=== PATIENT | male | born 1975 | race Caucasian/White ===

== ENCOUNTER 2025-02-10 11:32 | Emergency (ER) | payer SELFPAY ==
--- NOTE | ~2025-02-10 | XR_ITS ---
XR shoulder RT min 2V Ordering provider: Luis Armando Norris APRN History: . fall on monday, Rt shouldler pain, LROM . Comparison: None. FINDINGS: BONES: No acute fracture or dislocation. Degenerative changes in the area of the greater tuberosity w hich may indicate tendinosis of the supraspinatous. Clinical correlation and follow-up advised. JOINT SPACES: The acromioclavicular joint is normal. The glenohumeral joint is normal. SOFT TISSUES: Normal. IMPRESSION: No acute osseous abnormality right shoulder. Reviewed, dictated and finalized at location A.
[2025-02-10 11:46] VITALS: BP 153/96; PULSE 94; RESP 20; TEMP 36.8; O2SAT 98
--- NOTE | 2025-02-10 15:47 | ED_ITS ---
HPI - Extremity Injury (Upper) General Chief Complaint: Extremity Injury, Upper Stated Complaint: Injured Right Shoulder Time Seen by Provider: 02/10/25 12:30 Source: patient and RN notes reviewed Mode of arrival: ambulatory Limitations: no limitations History of Present Illness HPI narrative: 49-year-old male presents [facility] complaining of right shoulder injury. Patient was closing his cellar 3 days ago in the rain when he tripped and fell on his right side. Denies hitting his head, any loss of consciousness or any neck or back pain. Patient reports having pain in his right shoulder and that is worse with movement. Patient denies any numbness or tingling. Patient says he can only move his shoulder a little bit due to the pain. He denies any significant past medical history. Patient is also reporting left ear pain has been going on for over a month. His reports having chronic tinnitus in his ears. Patient denies any other upper respiratory symptoms. Related Data Home Medications ?Medication ?Instructions ?Recorded ?Confirmed ?Last Taken ?Type No Home Medications 02/10/25 02/10/25 Unknown History Allergies Allergy/AdvReac Type Severity Reaction Status Date / Time No Known Allergies Allergy Verified 02/10/25 11:55 Review of Systems Review of Systems: CONSTITUTIONAL: Denies fever, chills, or sweats. EYES: Denies visual changes, redness, or discharge. ENT: Denies rhinorrhea, congestion, sore throat. Positive for otalgia CARDIOVASCULAR: Denies chest pain, palpitations, or edema. RESPIRATORY: Denies cough or dyspnea. GASTROINTESTINAL: Denies abdominal pain, nausea, vomiting, or diarrhea. GENITOURINARY: Denies dysuria or hematuria. SKIN: Denies rash or itching. MUSCULOSKELETAL: Denies back pain, neck pain, joint pain, or myalgia. Positive right shoulder injury. NEUROLOGIC: Denies headache, numbness, or weakness. PSYCHIATRIC: Denies anxiety or depression. All other systems reviewed are negative, except as documented in HPI. PMFSH Comments At the time of my signature, I reviewed and agree with the nursing past medical, surgical, social, and family history. There is no relevant family history pertinent to the patient complaint. Exam Narrative: GENERAL: This is a well-nourished, well-developed adult, in no apparent distress. They are non ill-appearing, nontoxic appearing. HEAD: normocephalic, atraumatic. EYES: Sclera clear/white. Conjunctiva normal. Vision is grossly intact. Extraocular movements intact. Pupils PERRLA. No raccoon eyes. EARS: External ears normal, auditory canals clear and without drainage, TMs normal without perforation. Hearing grossly intact. No hemotympanum. NOSE: External nose normal with no obvious nasal discharge, nasal turbinates without redness, no rhinorrhea. THROAT: Mucous membranes moist, posterior pharynx clear, without erythema or swelling. Uvula midline. NECK: Neck supple, non-tender without lymphadenopathy, masses or thyromegaly. Normal range of motion without pain. No cervical point tenderness, crepitus, or step-offs. CARDIOVASCULAR: Regular rate and rhythm without murmurs, gallops, or rubs. RESPIRATORY: Clear to auscultation. Breath sounds equal bilaterally. No wheezes, rales, or rhonchi. GASTROINTESTINAL: Abdomen soft, non-tender, nondistended. Bowel sounds are active. No hepato-splenomegaly, or palpable masses. No guarding. SKIN: warm, Dry, intact with no suspicious lesions or rash, good texture and turgor. NEURO: awake, alert, and oriented to person, place and time. There were no obvious focal neurologic abnormalities. EXTREMITIES: Right shoulder: No obvious deformity, injury, swelling, bruising, redness. Limited range of motion due to pain. Patient able to abduct to approximately to 45? due to pain. No bony tenderness to palpation. Patient is able to pronate and supinate. Normal range of motion to the elbow and wrist. Neurovascular status intact distal injury. Radial pulse 2 +and palpable. Normal sensation. Capillary refill less than 2 seconds. Patient is able to make a fist, and okay sign, thumbs-up sign, stop sign. BACK: Nontender without deformity. No thoracic or lumbar point tenderness. No crepitus or step-offs. No CVA tenderness. Course Course Emergency Course: Portions of this record may have been created with voice recognition software Level of Care: Express Care Visit Vital Signs Vital signs: Vital Signs Temperature 98.2 F 02/10/25 11:46 Pulse Rate 94 02/10/25 11:46 Respiratory Rate 20 02/10/25 11:46 Blood Pressure 153/96 H 02/10/25 11:46 Pulse Oximetry 98 02/10/25 11:46 Oxygen Delivery Room Air 02/10/25 11:46 Temperature 98.2 F 02/10/25 11:46 Pulse Rate 94 02/10/25 11:46 Respiratory Rate 20 02/10/25 11:46 Blood Pressure 153/96 H 02/10/25 11:46 Pulse Oximetry 98 02/10/25 11:46 Oxygen Delivery Room Air 02/10/25 11:46 Reviewed MDM - Extremity Injury (Upper) MDM Narrative Medical decision making narrative: X-ray negative for any acute fracture dislocations or any other findings. Likely patient has strained his shoulder from his fall. Patient given Sling for comfort and recommend follow-up with orthopedist. Discussed physical exam findings. Advised supportive measures and signs/symptoms to go to the ER. Pt is appropriate for outpt treatment and f/u. Differential Diagnosis Differential diagnosis: Likely dislocation of shoulder, fracture of humerus and other (Shoulder fracture) Imaging Data Radiologist's impression: ITS Impressions Shoulder X-Ray 02/10/25 12:25 IMPRESSION: No acute osseous abnormality right shoulder. Critical Care Time Critical Care Time Critical Care Time: No Discharge Plan Discharge Clinical Impression: Injury of shoulder, right Qualifiers: Encounter type: initial encounter Qualified Code(s): S49.91XA - Unspecified injury of right shoulder and upper arm, initial encounter Patient Disposition: Home Condition: Stable Instructions: Shoulder Sprain (ED) Additional Instructions: Your x-rays negative for any shoulder fractures or dislocation or any other findings. Wear the arm sling for comfort. Apply ice 15-20 minute intervals several times a day Motrin 600mg -800mg every 8 hours, alternate with Tylenol 1000mg every 8 hours as needed Follow up with your primary care provider as needed in 1-2 weeks Follow-up with an orthopedist in 1 week if pain persists. If symptoms worsen or you have any other concerns please go to the ER immediately. Patient Language: Syriac Prescriptions: No Action No Home Medications Follow-up/Referrals: Akash Henson MD [Physician] - 3 Days Christopher Sotelo MD [Physician] - Time of Disposition: 12:39
== END 2025-02-10 12:44 | disposition home or self-care (01) ==
DX: S49.92XA Unspecified injury of left shoulder and upper arm, initial encounter (principal); W01.0XXA Fall on same level from slipping, tripping and stumbling without subsequent striking against object, initial encounter
CPT/HCPCS: 73030; 99203; A4565; G0463